=== PATIENT | male | born 1980 | race Caucasian/White ===

== ENCOUNTER 2019-03-05 08:37 | Emergency (ER) | payer OTHER ==
[~2019-03-05] VITALS: Ht 177.8 cm; Wt 86.9 kg
[2019-03-05 08:43] VITALS: Ht 177.8 cm; Wt 86.9 kg
[2019-03-05] MEDS ORDERED: ASPIRIN 325 MG TAB PO STA (09:08)
[2019-03-05 11:56] VITALS: BP 106/80; PULSE 55; RESP 20
== END 2019-03-05 13:04 | disposition home or self-care (01) ==
LOC: E/R 08:37
DX: R07.89 Other chest pain (principal); F41.9 Anxiety disorder, unspecified
CPT/HCPCS: 36415; 71045; 80048; 84484; 85025; 85378; 93005